=== PATIENT | female | born 1925 | race Caucasian/White ===

== ENCOUNTER 2016-10-03 01:39 | Inpatient (IN) | payer OTHER ==
[~2016-10-03] VITALS: Ht 162.6 cm; Wt 71.9 kg
[~2016-10-03 01:39] MED LIST: AGGRENOX1 CAPSULE PO; ASPIR-LOW81 MG PO; ASPIRIN325 MG PO; Aspirin E.C. PO; CIPRO500 MG PO; COLACE100 MG PO; DAILY MULTIPLE1 EACH PO; ENTRESTO 97 MG1 EACH PO; FAMOTIDINE20 MG PO; FISH OIL 1,0001 EAC7 PO; FLONASE16 G1 BOTH NARES; FUROSEMIDE40 MG PO; HYCODAN SYRUP480 ML PO; HYDROCHLOROTHIA50 MG PO; LASIX40 MG PO; LIDOCAINE700 MG TD; LISINOPRIL10 MG PO; LOPRESSOR50 MG PO; METOPROLOL TART25 MG PO; METOPROLOL TART50 MG PO; MIRALAX17 GM PO; PAXIL PO; PAXIL10 MG PO; PROTONIX40 MG PO; TRAMADOL HCL50 MG PO; VITAMIN D31000 UNI2 PO; ZANTAC300 MG PO
[2016-10-03 02:32] LABS: HEMATOCRIT 37.3 % (36.0-46.0); MCH 30.5 PG (29.0-34.0); MCHC 32.2 G/DL (30.0-36.0); MCV 94.9 FL (83-99); MEAN PLAT.VOLUME 10.4 uM^3 (9.5-12.4); PLATELET COUNT 224 K/uL (156-360); RBC DIS.WIDTH-CV 13.1 % (11.8-14.6); RBC DIS.WIDTH-SD 45.2 % (39-53); RED BLOOD COUNT 3.93 M/uL (3.80-5.20); WHITE BLOOD COUNT 12.2 K/uL (4.1-10.2)
[2016-10-03 02:55] LABS: CHLORIDE 106 mEq/L (99-109)
[2016-10-03 02:56] LABS: POTASSIUM 4.2 mEq/L (3.7-5.4); SODIUM 145 mEq/L (136-147)
[2016-10-03 02:58] LABS: GLUCOSE 146 mg/dL (70-99)
[2016-10-03 02:59] LABS: ANION GAP 15 MEQ/L (2-14)
[2016-10-03 03:00] LABS: INTER. NORMALIZED RATIO 1.2; PROTHROMBIN TIME 12.2 (9.2-11.2); PTT 21.7 (25-32); TOTAL BILIRUBIN 0.3 mg/dL (0.0-1.0)
[2016-10-03 03:01] LABS: ALKALINE PHOSPHATASE 55 IU/L (3-129)
[2016-10-03 03:02] LABS: GFR ESTIMATE (CALCULATED) 38 mL/min/
[2016-10-03 03:03] LABS: DIRECT BILIRUBIN 0.1 mg/dL (0.0-0.3); TROP-I INTERPRETATION NEGATIVE; TROPONIN-I 0.14 ng/mL (0.0-0.30); UREA NITROGEN (BUN) 25 mg/dL (9-23)
[2016-10-03 03:05] LABS: LIPASE 40 U/L (1.0-51.0)
[2016-10-03 06:08] VITALS: BP 144/98
[2016-10-03 09:30] VITALS: BP 136/71
[2016-10-03 10:12] LABS: TROP-I INTERPRETATION POSITIVE; TROPONIN-I 0.63 ng/mL (0.0-0.30)
[2016-10-03 11:29] VITALS: BP 121/61
[2016-10-03 15:27] LABS: ANION GAP 8 MEQ/L (2-14); CHLORIDE 105 MEQ/L (99-109); GFR ESTIMATE (CALCULATED) 41 mL/min/; POTASSIUM 4.1 MEQ/L (3.7-5.4); SAMPLE HEMOLYSIS CHECK 0; SAMPLE ICTERIC CHECK 0; SAMPLE LIPEMIA CHECK 0; SODIUM 142 MEQ/L (136-147); UREA NITROGEN (BUN) 26 mg/dL (9-23)
[2016-10-03 15:33] LABS: TROPONIN-I 3.32 ng/mL (0.0-0.30)
[2016-10-03 15:35] LABS: GLUCOSE 102 mg/dL (70-99); TROP-I INTERPRETATION POSITIVE
[2016-10-03 16:20] VITALS: BP 120/68
[2016-10-03 20:00] VITALS: BP 137/68
[2016-10-04] VITALS (7 sets, daily range): BP systolic 105–140; BP diastolic 60–85
[2016-10-05 05:05] VITALS: BP 127/82
[2016-10-05 07:37] LABS: HEMATOCRIT 30.9 % (36.0-46.0); MCH 30.6 PG (29.0-34.0); MCHC 31.7 G/DL (30.0-36.0); MCV 96.6 FL (83-99); MEAN PLAT.VOLUME 11.3 uM^3 (9.5-12.4); PLATELET COUNT 161 K/uL (156-360); RBC DIS.WIDTH-CV 13.3 % (11.8-14.6); RBC DIS.WIDTH-SD 46.5 % (39-53)
[2016-10-05 07:48] LABS: WHITE BLOOD COUNT 7.1 K/uL (4.1-10.2)
[2016-10-05 08:11] VITALS: BP 125/57
[2016-10-05 17:40] VITALS: BP 155/90
[2016-10-05 19:40] VITALS: BP 137/76
[2016-10-05 23:53] VITALS: BP 140/73
[2016-10-06 03:55] VITALS: BP 156/71
[2016-10-06 06:58] LABS: HEMATOCRIT 29.9 % (36.0-46.0); MCH 30.4 PG (29.0-34.0); MCHC 31.8 G/DL (30.0-36.0); MCV 95.8 FL (83-99); MEAN PLAT.VOLUME 11.2 uM^3 (9.5-12.4); PLATELET COUNT 164 K/uL (156-360); RBC DIS.WIDTH-CV 13.2 % (11.8-14.6); RBC DIS.WIDTH-SD 45.4 % (39-53); RED BLOOD COUNT 3.12 M/uL (3.80-5.20); WHITE BLOOD COUNT 6.3 K/uL (4.1-10.2)
[2016-10-06 07:21] LABS: ANION GAP 7 MEQ/L (2-14); CHLORIDE 106 MEQ/L (99-109); GFR ESTIMATE (CALCULATED) 55 mL/min/; GLUCOSE 78 mg/dL (70-99); POTASSIUM 4.4 MEQ/L (3.7-5.4); SAMPLE HEMOLYSIS CHECK 0; SAMPLE ICTERIC CHECK 0; SAMPLE LIPEMIA CHECK 0; SODIUM 144 MEQ/L (136-147); UREA NITROGEN (BUN) 12 mg/dL (9-23)
[2016-10-06 07:30] VITALS: BP 152/78
[2016-10-06 11:15] VITALS: BP 140/71
[2016-10-06 11:31] LABS: HDL CHOLESTEROL 43 MG/DL (Desirable>=50); LDL CHOLESTEROL 60 mg/dL (Desirable<100); NON-HDL CHOLESTEROL 79 mg/dL (Desirable<160); TOTAL CHOLESTEROL 122 mg/dL (Desirable<200); TRIGLYCERIDES 95 MG/DL (Normal: <150)
== END 2016-10-06 14:13 | disposition home health service (06) | DRG 281 ==
LOC: EME → EDBD 01:39 → EDOF 05:08 → 5WEST 06:01 → 4EAST 14:11 → 5WEST 14:11 → 4EAST 10-05 17:43
PROVIDERS: Emergency Medicine; Family Medicine; Internal Medicine Cardiovascular Disease
PROC: B2111ZZ Fluoroscopy of Multiple Coronary Arteries using Low Osmolar Contrast (ICD-10-PCS; principal; 2016-10-03)
PROC: 4A023N7 Measurement of Cardiac Sampling and Pressure, Left Heart, Percutaneous Approach (ICD-10-PCS; principal; 2016-10-03)
DX: I21.4 Non-ST elevation (NSTEMI) myocardial infarction (principal); N17.9 Acute kidney failure, unspecified; J98.11 Atelectasis; I24.9 Acute ischemic heart disease, unspecified; I25.10 Atherosclerotic heart disease of native coronary artery without angina pectoris; M54.9 Dorsalgia, unspecified; R07.89 Other chest pain; R10.9 Unspecified abdominal pain; I11.9 Hypertensive heart disease without heart failure; Z88.0 Allergy status to penicillin; Z88.1 Allergy status to other antibiotic agents; Z88.2 Allergy status to sulfonamides; K21.9 Gastro-esophageal reflux disease without esophagitis; I50.9 Heart failure, unspecified; Z86.73 Personal history of transient ischemic attack (TIA), and cerebral infarction without residual deficits; Z95.810 Presence of automatic (implantable) cardiac defibrillator; R50.9 Fever, unspecified; R05 Cough
CPT/HCPCS: 71010; 71020; 74176; 80048; 80048 91; 80061; 80076; 83690; 84484; 85027; 85347; 85610; 85730; 93005; 99281; 99285; C1769; C1887; J1644; J2250; J2405; J3010; J7040